=== PATIENT | male | born 1985 | race Caucasian/White ===

== ENCOUNTER 2019-03-27 12:51 | Emergency (ER) | payer BC, OTHER ==
--- NOTE | 2019-03-27 13:26 | EDM.PDOC ---
ED HPI GENERAL MEDICAL PROBLEM - General Chief Complaint: Genitourinary Problem Stated Complaint: groin pain Time Seen by Provider: 03/27/19 12:57 Source of Information: Reports: Patient History Limitations: Reports: No Limitations - History of Present Illness INITIAL COMMENTS - FREE TEXT/NARRATIVE: HISTORY AND PHYSICAL: Resents reporting that he woke around 5:30 this morning and after he was up for a little while he noticed that his left testicle was swollen and painful as well as tender to the touch. He also felt a little nauseated this morning but no vomiting. He denies dysuria, groin injury or fever. He is sexually active with his only. He had a remote left inguinal hernia repair. No history of undescended testicle. He states since his arrival here in the ER his pain, swelling and tenderness have significantly decreased. History of present illness: [] Review of systems: As per history of present illness and below otherwise all systems reviewed and negative. Past medical history: As per history of present illness and as reviewed below otherwise noncontributory. Surgical history: As per history of present illness and as reviewed below otherwise noncontributory. Social history: No reported history of drug or alcohol abuse. Family history: As per history of present illness and as reviewed below otherwise noncontributory. Physical exam: HEENT: Atraumatic, normocephalic, pupils reactive, negative for conjunctival pallor or scleral icterus, mucous membranes moist, throat clear, neck supple, nontender, trachea midline. Lungs: Clear to auscultation, breath sounds equal bilaterally, chest nontender. Heart: S1S2, regular, negative for clicks, rubs, or JVD. Abdomen: Soft, nondistended, nontender. Negative for masses or hepatosplenomegaly. Negative for costovertebral tenderness. Pelvis: Stable nontender. Genitourinary: Deferred. Rectal: Deferred. Extremities: Atraumatic, negative for cords or calf pain. Neurovascular unremarkable. Neuro: Awake, alert, oriented. Cranial nerves II through XII unremarkable. Cerebellum unremarkable. Motor and sensory unremarkable throughout. Exam nonfocal. Diagnostics: [] Therapeutics: [] Impression: [] Plan: [] Definitive disposition and diagnosis as appropriate pending reevaluation and review of above. left testicle Pain Score (Numeric/FACES): 2 - Related Data Allergies Allergy/AdvReac Type Severity Reaction Status Date / Time No Known Allergies Allergy Verified 03/27/19 13:01 Home Meds: Home Meds . [No Known Home Meds] 03/27/19 [History] Past Medical History - Past Health History Medical/Surgical History: Denies Medical/Surgical History - Infectious Disease History Infectious Disease History: Reports: Chicken Pox - Past Surgical History GI Surgical History: Reports: Hernia, Inguinal Social & Family History - Family History Family Medical History: Noncontributory - Tobacco Use Smoking Status *Q: Never Smoker Second Hand Smoke Exposure: No - Recreational Drug Use Recreational Drug Use: No ED ROS GENERAL - Review of Systems Review Of Systems: ROS reveals no pertinent complaints other than HPI. ED EXAM, GI/ABD - Physical Exam Exam: See Below Exam Limited By: No Limitations General Appearance: Alert, No Apparent Distress Ears: Normal External Exam Nose: Normal Inspection Throat/Mouth: Normal Inspection Head: Normocephalic Neck: Normal Inspection Respiratory/Chest: No Respiratory Distress, Lungs Clear, Normal Breath Sounds Cardiovascular: Normal Peripheral Pulses, Regular Rate, Rhythm, No Murmur GI/Abdominal Exam: Soft, Non-Tender, No Distention (Male) Exam: No Hernia, Normal Inspection, Circumcised, Cremasteric Reflex, Other (Left testicle smooth, non-tender to palpation, hanging in usual position. Cremasteric reflex intact bilateral. No inguinal hernia.). No: Hernia, Penile Lesions, Scrotal Swelling, Scrotum Tenderness (L), Scrotum Tenderness (R), Testicular Mass, Testicular Tenderness (L), Testicular Tenderness (R), Urethral Discharge Back Exam: Normal Inspection. No: CVA Tenderness (L), CVA Tenderness (R) Extremities: Normal Inspection Neurological: Alert, Oriented Psychiatric: Normal Affect, Normal Mood Skin Exam: Warm, Dry, Intact, Normal Color, No Rash Lymphatic: No Adenopathy Course - Vital Signs Last Recorded V/S: Last Vital Signs Temp 36.2 C 03/27/19 12:59 Pulse 92 03/27/19 12:59 Resp 16 03/27/19 12:59 BP 123/89 03/27/19 12:59 Pulse Ox 98 03/27/19 12:59 - Orders/Labs/Meds Labs: Laboratory Tests 03/27/19 Range/Units 13:15 Urine Color YELLOW Urine Appearance CLEAR Urine pH 7.0 (5.0-8.0) Ur Specific [place] <= 1.005 (1.001-1.035) Urine Protein NEGATIVE (NEGATIVE) mg/dL Urine Glucose (UA) NEGATIVE (NEGATIVE) mg/dL Urine Ketones NEGATIVE (NEGATIVE) mg/dL Urine Occult Blood NEGATIVE (NEGATIVE) Urine Nitrite NEGATIVE (NEGATIVE) Urine Bilirubin NEGATIVE (NEGATIVE) Urine Urobilinogen 0.2 (<2.0) EU/dL Ur Leukocyte Esterase NEGATIVE (NEGATIVE) - Re-Assessments/Exams Free Text/Narrative Re-Assessment/Exam: 03/27/19 14:17 The patient's symptoms are completely resolved in the emergency room. His exam was negative Departure - Departure Time of Disposition: 14:15 Disposition: Home, Self-Care 01 Condition: Good Clinical Impression: Testicular pain, left - Discharge Information Instructions: Scrotal Swelling Referrals: PCP,Unknown [Primary Care Provider] - Tr Triplett MD [Physician] - Mikayla Daley DO [Ordering Only Provider] - Forms: ED Department Discharge Additional Instructions: 1. Make an appointment in urology to discuss and review your recent symptoms. 2. If symptoms recur, return promptly to the emergency room [facility] - Urology [address] [place] [id number]
== END 2019-03-27 14:24 | disposition home or self-care (01) ==
LOC: MW.ED 12:51
DX: N50.812 Left testicular pain (principal)
CPT/HCPCS: 81003; 99284

== ENCOUNTER 2021-06-07 19:25 | Observation (INO) | payer BC ==
[2021-06-07] MEDS ORDERED: Sodium Chloride 0.9% 1,000 ML IV ONE ×2 (20:00→22:04)
[2021-06-07] MEDS ORDERED: Ketorolac 15 MG/ML SDV IVPUSH ONE (20:00)
[2021-06-07] MEDS ORDERED: Sodium Chloride 0.9% 10 ML Syringe FLUSH PRN (20:00)
[2021-06-07] MEDS ORDERED: Sodium Chloride 0.9% 2.5 ML Syringe FLUSH PRN (20:00)
[2021-06-07 20:29] LABS: BLOOD UREA NITROGEN,BUN 8 mg/dL (7.0-18.0); CARBON DIOXIDE,CO2 25.4 mmol/L (21.0-32.0); CHLORIDE,CL 88 mmol/L (98-107); GLUCOSE RANDOM 136 mg/dL (74-106); POTASSIUM,K 4.2 mmol/L (3.5-5.1); SODIUM,NA 125 mmol/L (136-148)
--- NOTE | 2021-06-07 22:26 | CT ---
Indication: Covered positive. Chest pain. Technique: Multiple contiguous axial images were obtained from the thoracic inlet through the upper abdomen after the intravenous administration of 100 milliliters Isovue 370. The exam is tailored for the evaluation of the pulmonary arteries. Please note that all CT scans at this facility use dose modulation, iterative reconstruction, and/or weight-based dosing when appropriate to reduce radiation dose to as low as reasonably achievable. Comparison: None Findings: No pulmonary embolism is identified. The aorta is normal in caliber. The heart is normal in size. No pericardial effusion is identified. The visualized portions of the liver, spleen, pancreas, adrenals, kidneys are normal. No intrahepatic biliary ductal dilatation is identified. The spleen is enlarged, measuring a minimum of 14 centimeters in size, incompletely evaluated. Bilateral patchy ground-glass opacities are identified, most consistent with COVID. No infiltrate or pneumothorax is identified. No pleural effusion is identified. Impression: Findings most consistent with COVID with bilateral patchy ground-glass opacities. No evidence of pulmonary embolism. Splenomegaly, incompletely evaluated on this study. Please note that all CT scans at this facility use dose modulation, iterative reconstruction, and/or weight-based dosing when appropriate to reduce radiation dose to as low as reasonably achievable. Dictated by Princess Davidson MD @ 06/07/2021 10:24:55 PM (Electronically Signed)
[2021-06-07 22:30] LABS: BLOOD UREA NITROGEN,BUN 9 mg/dL (7.0-18.0); CHLORIDE,CL 91 mmol/L (98-107); GLUCOSE RANDOM 110 mg/dL (74-106); POTASSIUM,K 3.9 mmol/L (3.5-5.1); SODIUM,NA 125 mmol/L (136-148)
--- NOTE | 2021-06-07 23:01 | EDM.PDOC ---
ED HPI GENERAL MEDICAL PROBLEM - General Chief Complaint: Chest Pain Stated Complaint: COVID POS, CHEST PAINS Time Seen by Provider: 06/07/21 19:43 - History of Present Illness INITIAL COMMENTS - FREE TEXT/NARRATIVE: HISTORY AND PHYSICAL: History of present illness: Is a healthy 35-year-old gentleman with no significant past medical history who presents ER today secondary to chest pain and shortness of breath. Patient reports that he cold the health department and they recommended he come to the ER for further evaluation of his symptoms as well as possible initiation of Regeneron therapy. Patient reports that he was diagnosed on May 30 with his initial symptoms starting on June 01. Patient reports that he had his test done 2 days prior to his symptoms beginning because of exposure to family members with Covid. Patient denies any recent vomiting or diarrhea. Patient has any dysuria, frequency, urgency. Patient reports he has had fevers with cough. Patient reports shortness of breath as well as chest discomfort that started in the last 1 to 2 days. Patient is not currently on any diuretics. Patient does not drink alcohol but reports that he occasionally uses a vape. Review of systems: As per history of present illness and below otherwise all systems reviewed and negative. Past medical history: As per history of present illness and as reviewed below otherwise noncontributory. Surgical history: As per history of present illness and as reviewed below otherwise noncontributory. Social history: No reported history of drug abuse. Family history: As per history of present illness and as reviewed below otherwise noncontributory. Physical exam: This patient was seen and evaluated during the 2019 SARS-CoV-2 novel coronavirus pandemic period. Community viral transmission is ongoing at time of this encounter and the emergency department is operating under pandemic response procedures. Constitutional: Patient is oriented to person, place, and time. Appears well- developed and well-nourished. No distress. HEENT: Moist mucous membranes Head: Normocephalic and atraumatic Eyes: Right eye exhibits no discharge. Left eye exhibits no discharge. No scleral icterus Neck: Normal range of motion. No tracheal deviation present. Cardiovascular: Normal rate and regular rhythm. Pulmonary: Effort normal, no respiratory distress. No wheezing rales or rhonchi Abdominal: No distention Musculoskeletal: Normal range of motion Neurologic: Alert and oriented to person, place and time. Skin: [place], warm and dry. Psychiatric: Normal mood and affect. Behavior is normal. Judgment and thought content normal. Nursing note and vital signs have been reviewed Diagnostics: Sodium level 125. This was repeated after 1 L of NSS and his sodium level did not change and still 125. EK06/07/2021. 7:40 PM As interpreted by ER physician: [place]: Nonspecific ST-T wave abnormalities Normal axis No evidence of ST elevation [place] Normal sinus rhythm heart rate of 100 CTA of the thorax reveals changes consistent with Covid pneumonia. D-dimer positive Therapeutics: NSS x1 L Assessment and plan: 35-year-old gentleman who presents ER today secondary to chest discomfort with shortness of breath after being diagnosed with Covid approximately 7 days ago. Patient's ER work-up reveals no evidence of PE. Patient's EKG and troponin are normal. Of concern is patient's hyponatremia with a sodium level of 125. Patient has been able to tolerate p.o. solids and liquids well. This appears to be most likely consistent with SIADH versus hyponatremia from coronavirus infection. Patient will be admitted for observation to determine trends of his sodium and to monitor for possible seizure activity. Definitive disposition and diagnosis as appropriate pending reevaluation and review of above. Chest Pain Score (Numeric/FACES): 5 - Related Data Allergies Allergy/AdvReac Type Severity Reaction Status Date / Time No Known Allergies Allergy Verified 06/07/21 19:40 Home Meds: Home Meds . [No Known Home Meds] 03/27/19 [History] Past Medical History - Past Health History Medical/Surgical History: Denies Medical/Surgical History - Infectious Disease History Infectious Disease History: Reports: Chicken Pox, Novel Coronavirus - Past Surgical History GI Surgical History: Reports: Hernia, Inguinal Social & Family History - Family History Family Medical History: No Pertinent Family History - Tobacco Use Tobacco Use Status *Q: Never Tobacco User - Caffeine Use Caffeine Use: Reports: Coffee - Recreational Drug Use Recreational Drug Use: No ED ROS GENERAL - Review of Systems Review Of Systems: See Below ED EXAM, GENERAL - Physical Exam Exam: See Below Course - Vital Signs Last Recorded V/S: Last Vital Signs Temp 97.7 F 06/07/21 22:54 Pulse 85 06/07/21 22:54 Resp 18 06/07/21 22:54 BP 99/62 06/07/21 22:54 Pulse Ox 95 06/07/21 22:54 - Orders/Labs/Meds Orders: Active Orders 24 hr Category Date Time Status Sodium Chloride 0.9% [Normal Saline] 1,000 ml Med 06/07/21 22:04 Active IV .Bolus Sodium Chloride 0.9% [Saline Flush] Med 06/07/21 20:00 Active 10 ml FLUSH ASDIRECTED PRN Sodium Chloride 0.9% [Saline Flush] Med 06/07/21 20:00 Active 2.5 ml FLUSH ASDIRECTED PRN Saline Lock Insert [OM.PC] Stat Oth 06/07/21 20:00 Ordered Medication Orders Sodium Chloride (Normal Saline) 1,000 mls @ 999 mls/hr IV .Bolus ONE Stop: 06/07/21 23:04 Sodium Chloride (Sodium Chloride 0.9% 10 Ml Syringe) 10 ml FLUSH ASDIRECTED PRN PRN Reason: Keep Vein Open Last Admin: 06/07/21 20:13 Dose: 10 ml Documented by: CALOS Sodium Chloride (Sodium Chloride 0.9% 2.5 Ml Syringe) 2.5 ml FLUSH ASDIRECTED PRN PRN Reason: Keep Vein Open Last Admin: 06/07/21 20:13 Dose: 2.5 ml Documented by: CALOS Labs: Laboratory Tests 06/07/21 06/07/21 06/07/21 Range/Units 19:50 19:50 19:50 WBC 3.64 L (4.0-11.0) K/uL RBC 5.25 (4.50-5.90) M/uL Hgb 14.9 (13.0-17.0) g/dL Hct 40.8 (38.0-50.0) % MCV 77.7 L (80.0-98.0) fL MCH 28.4 (27.0-32.0) pg MCHC 36.5 (31.0-37.0) g/dL RDW Std Deviation 36.2 (28.0-62.0) fl RDW Coeff of David 13 (11.0-15.0) % Plt Count 120 L (150-400) K/uL MPV 10.60 (7.40-12.00) fL Neut % (Auto) 68.7 (48.0-80.0) % Lymph % (Auto) 23.9 (16.0-40.0) % [place] % (Auto) 7.4 (0.0-15.0) % Eos % (Auto) 0.0 (0.0-7.0) % Baso % (Auto) 0.0 (0.0-1.5) % Neut # (Auto) 2.5 (1.4-5.7) K/uL Lymph # (Auto) 0.9 (0.6-2.4) K/uL [place] # (Auto) 0.3 (0.0-0.8) K/uL Eos # (Auto) 0.0 (0.0-0.7) K/uL Baso # (Auto) 0.0 (0.0-0.1) K/uL Nucleated RBC % 0.0 /100WBC Nucleated RBCs # 0 K/uL D-Dimer, Quantitative 1.53 H (0.0-0.50) mg/L FEU Sodium 125 L (136-148) mmol/L Potassium 4.2 (3.5-5.1) mmol/L Chloride 88 L (98-107) mmol/L Carbon Dioxide 25.4 (21.0-32.0) mmol/L BUN 8 (7.0-18.0) mg/dL Creatinine 1.0 (0.8-1.3) mg/dL Est Cr Clr Drug Dosing 104.43 mL/min Estimated GFR (MDRD) > 60.0 ml/min Glucose 136 H (74-106) mg/dL Calcium 8.1 L (8.5-10.1) mg/dL Total Bilirubin 0.6 (0.2-1.0) mg/dL AST 45 H (15-37) IU/L ALT 69 H (14-63) IU/L Alkaline Phosphatase 98 (46-116) U/L Troponin I < 0.050 (0.000-0.056) ng/mL Total Protein 7.8 (6.4-8.2) g/dL Albumin 3.7 (3.4-5.0) g/dL Globulin 4.1 H (2.6-4.0) g/dL Albumin/Globulin Ratio 0.9 (0.9-1.6) 06/07/21 Range/Units 22:10 WBC (4.0-11.0) K/uL RBC (4.50-5.90) M/uL Hgb (13.0-17.0) g/dL Hct (38.0-50.0) % MCV (80.0-98.0) fL MCH (27.0-32.0) pg MCHC (31.0-37.0) g/dL RDW Std Deviation (28.0-62.0) fl RDW Coeff of David (11.0-15.0) % Plt Count (150-400) K/uL MPV (7.40-12.00) fL Neut % (Auto) (48.0-80.0) % Lymph % (Auto) (16.0-40.0) % [place] % (Auto) (0.0-15.0) % Eos % (Auto) (0.0-7.0) % Baso % (Auto) (0.0-1.5) % Neut # (Auto) (1.4-5.7) K/uL Lymph # (Auto) (0.6-2.4) K/uL [place] # (Auto) (0.0-0.8) K/uL Eos # (Auto) (0.0-0.7) K/uL Baso # (Auto) (0.0-0.1) K/uL Nucleated RBC % /100WBC Nucleated RBCs # K/uL D-Dimer, Quantitative (0.0-0.50) mg/L FEU Sodium 125 L (136-148) mmol/L Potassium 3.9 (3.5-5.1) mmol/L Chloride 91 L (98-107) mmol/L Carbon Dioxide 24.0 (21.0-32.0) mmol/L BUN 9 (7.0-18.0) mg/dL Creatinine 0.9 (0.8-1.3) mg/dL Est Cr Clr Drug Dosing 116.03 mL/min Estimated GFR (MDRD) > 60.0 ml/min Glucose 110 H (74-106) mg/dL Calcium 7.0 L (8.5-10.1) mg/dL Total Bilirubin (0.2-1.0) mg/dL AST (15-37) IU/L ALT (14-63) IU/L Alkaline Phosphatase (46-116) U/L Troponin I (0.000-0.056) ng/mL Total Protein (6.4-8.2) g/dL Albumin (3.4-5.0) g/dL Globulin (2.6-4.0) g/dL Albumin/Globulin Ratio (0.9-1.6) Meds: Medications Generic Name Dose Route Start Last Admin Trade Name Kevenq PRN Reason Stop Dose Admin Sodium Chloride 1,000 mls @ 999 mls/hr 06/07/21 22:04 Normal Saline IV 06/07/21 23:04 .Bolus ONE Sodium Chloride 10 ml 06/07/21 20:00 06/07/21 20:13 Sodium Chloride 0.9% 10 Ml Syringe FLUSH 10 ml ASDIRECTED PRN Administration Keep Vein Open Sodium Chloride 2.5 ml 06/07/21 20:00 06/07/21 20:13 Sodium Chloride 0.9% 2.5 Ml Syringe FLUSH 2.5 ml ASDIRECTED PRN Administration Keep Vein Open Discontinued Medications Generic Name Dose Route Start Last Admin Trade Name Kevenq PRN Reason Stop Dose Admin Sodium Chloride 1,000 mls @ 999 mls/hr 06/07/21 20:00 06/07/21 20:12 Normal Saline IV 06/07/21 21:00 999 mls/hr .Bolus ONE Administration Ketorolac Tromethamine 15 mg 06/07/21 20:00 06/07/21 20:12 Ketorolac 15 Mg/Ml Sdv IVPUSH 06/07/21 20:01 15 mg ONETIME ONE Administration Departure - Departure Time of Disposition: 23:00 Disposition: Refer to Observation Condition: Good Clinical Impression: COVID-19 virus infection, Pneumonia due to COVID-19 virus, Hyponatremia - Discharge Information Referrals: Riley Almaguer [Primary Care Provider] - Sepsis Event Note (ED) - Evaluation Sepsis Screening Result: No Definite Risk - Focused Exam Vital Signs: Vital Signs Temp Pulse Resp BP Pulse Ox 06/07/21 22:54 97.7 F 85 18 99/62 95 06/07/21 21:18 87 112/67 94 L 06/07/21 19:40 98.2 F 100 18 125/75 94 L - My Orders Last 24 Hours: My Active Orders 06/07/21 20:00 Sodium Chloride 0.9% [Saline Flush] 10 ml FLUSH ASDIRECTED PRN Sodium Chloride 0.9% [Saline Flush] 2.5 ml FLUSH ASDIRECTED PRN Saline Lock Insert [OM.PC] Stat 06/07/21 22:04 Sodium Chloride 0.9% [Normal Saline] 1,000 ml IV .Bolus - Assessment/Plan Last 24 Hours: My Active Orders 06/07/21 20:00 Sodium Chloride 0.9% [Saline Flush] 10 ml FLUSH ASDIRECTED PRN Sodium Chloride 0.9% [Saline Flush] 2.5 ml FLUSH ASDIRECTED PRN Saline Lock Insert [OM.PC] Stat 06/07/21 22:04 Sodium Chloride 0.9% [Normal Saline] 1,000 ml IV .Bolus
[2021-06-07] MEDS ORDERED: Iopamidol 755 MG/ML 500 ML Multipack Bottle IVPUSH STA (23:06)
--- NOTE | 2021-06-07 23:15 | PCM.HP.2 ---
H&P History of Present Illness - General Date of Service: 06/09/21 Admit Problem/Dx: Admission Diagnosis/Problem Admission Diagnosis/Problem Pneumonia - History of Present Illness Initial Comments - Free Text/Narative: 35 yo male who presented with one week history of nausea, poor apatite, and diarrhea. He also reported a cough with shortness of breath. He tested positive for COVID on the May 30 and started to have symptoms on the . In the ER he was found to be not hypoxic. He did have a low sodium fo 125. CT scan of chest reported bilateral ground glass opacifications. Chest Pain Score (Numeric/FACES): 5 - Related Data Allergies/Adverse Reactions: Allergies Allergy/AdvReac Type Severity Reaction Status Date / Time No Known Allergies Allergy Verified 06/07/21 23:43 Home Medications: Home Meds D-Methorphan/PE/Acetaminophen [Tylenol Cold Multi-Symp Caplet] 2 tab PO Q4H PRN 06/07/21 [History] Ibuprofen 600 mg PO Q8H PRN 06/07/21 [History] Past Medical History - Past Health History Medical/Surgical History: Denies Medical/Surgical History - Infectious Disease History Infectious Disease History: Reports: Chicken Pox, Novel Coronavirus - Past Surgical History GI Surgical History: Reports: Hernia, Inguinal Social & Family History - Family History Family Medical History: No Pertinent Family History - Tobacco Use Tobacco Use Status *Q: Never Tobacco User - Caffeine Use Caffeine Use: Reports: Coffee - Recreational Drug Use Recreational Drug Use: No H&P Review of Systems - Review of Systems: Review Of Systems: Comprehensive ROS is negative, except as noted in HPI. Exam - Exam Exam: See Below - Vital Signs Vital Signs: Last Vital Signs Temp 36.5 C 06/07/21 22:54 Pulse 85 06/07/21 22:54 Resp 18 06/07/21 22:54 BP 99/62 06/07/21 22:54 Pulse Ox 95 06/07/21 22:54 Weight: 106.594 kg - Exam General: Alert, Oriented Lungs: Clear to Auscultation, Normal Respiratory Effort Cardiovascular: Regular Rate, Regular Rhythm GI/Abdominal Exam: Normal Bowel Sounds, Soft Extremities: Non-Tender, No Pedal Edema Skin: Warm, Dry, Intact Neurological: No: Focal Deficit - Patient Data Lab Results Last 24 hrs: Laboratory Results - last 24 hr 06/07/21 06/07/21 06/07/21 Range/Units 19:50 19:50 19:50 WBC 3.64 L (4.0-11.0) K/uL RBC 5.25 (4.50-5.90) M/uL Hgb 14.9 (13.0-17.0) g/dL Hct 40.8 (38.0-50.0) % MCV 77.7 L (80.0-98.0) fL MCH 28.4 (27.0-32.0) pg MCHC 36.5 (31.0-37.0) g/dL RDW Std Deviation 36.2 (28.0-62.0) fl RDW Coeff of David 13 (11.0-15.0) % Plt Count 120 L (150-400) K/uL MPV 10.60 (7.40-12.00) fL Neut % (Auto) 68.7 (48.0-80.0) % Lymph % (Auto) 23.9 (16.0-40.0) % [place] % (Auto) 7.4 (0.0-15.0) % Eos % (Auto) 0.0 (0.0-7.0) % Baso % (Auto) 0.0 (0.0-1.5) % Neut # (Auto) 2.5 (1.4-5.7) K/uL Lymph # (Auto) 0.9 (0.6-2.4) K/uL [place] # (Auto) 0.3 (0.0-0.8) K/uL Eos # (Auto) 0.0 (0.0-0.7) K/uL Baso # (Auto) 0.0 (0.0-0.1) K/uL Nucleated RBC % 0.0 /100WBC Nucleated RBCs # 0 K/uL D-Dimer, Quantitative 1.53 H (0.0-0.50) mg/L FEU Sodium 125 L (136-148) mmol/L Potassium 4.2 (3.5-5.1) mmol/L Chloride 88 L (98-107) mmol/L Carbon Dioxide 25.4 (21.0-32.0) mmol/L BUN 8 (7.0-18.0) mg/dL Creatinine 1.0 (0.8-1.3) mg/dL Est Cr Clr Drug Dosing 104.43 mL/min Estimated GFR (MDRD) > 60.0 ml/min Glucose 136 H (74-106) mg/dL Calcium 8.1 L (8.5-10.1) mg/dL Total Bilirubin 0.6 (0.2-1.0) mg/dL AST 45 H (15-37) IU/L ALT 69 H (14-63) IU/L Alkaline Phosphatase 98 (46-116) U/L Troponin I < 0.050 (0.000-0.056) ng/mL Total Protein 7.8 (6.4-8.2) g/dL Albumin 3.7 (3.4-5.0) g/dL Globulin 4.1 H (2.6-4.0) g/dL Albumin/Globulin Ratio 0.9 (0.9-1.6) 06/07/21 Range/Units 22:10 WBC (4.0-11.0) K/uL RBC (4.50-5.90) M/uL Hgb (13.0-17.0) g/dL Hct (38.0-50.0) % MCV (80.0-98.0) fL MCH (27.0-32.0) pg MCHC (31.0-37.0) g/dL RDW Std Deviation (28.0-62.0) fl RDW Coeff of David (11.0-15.0) % Plt Count (150-400) K/uL MPV (7.40-12.00) fL Neut % (Auto) (48.0-80.0) % Lymph % (Auto) (16.0-40.0) % [place] % (Auto) (0.0-15.0) % Eos % (Auto) (0.0-7.0) % Baso % (Auto) (0.0-1.5) % Neut # (Auto) (1.4-5.7) K/uL Lymph # (Auto) (0.6-2.4) K/uL [place] # (Auto) (0.0-0.8) K/uL Eos # (Auto) (0.0-0.7) K/uL Baso # (Auto) (0.0-0.1) K/uL Nucleated RBC % /100WBC Nucleated RBCs # K/uL D-Dimer, Quantitative (0.0-0.50) mg/L FEU Sodium 125 L (136-148) mmol/L Potassium 3.9 (3.5-5.1) mmol/L Chloride 91 L (98-107) mmol/L Carbon Dioxide 24.0 (21.0-32.0) mmol/L BUN 9 (7.0-18.0) mg/dL Creatinine 0.9 (0.8-1.3) mg/dL Est Cr Clr Drug Dosing 116.03 mL/min Estimated GFR (MDRD) > 60.0 ml/min Glucose 110 H (74-106) mg/dL Calcium 7.0 L (8.5-10.1) mg/dL Total Bilirubin (0.2-1.0) mg/dL AST (15-37) IU/L ALT (14-63) IU/L Alkaline Phosphatase (46-116) U/L Troponin I (0.000-0.056) ng/mL Total Protein (6.4-8.2) g/dL Albumin (3.4-5.0) g/dL Globulin (2.6-4.0) g/dL Albumin/Globulin Ratio (0.9-1.6) Result Diagrams: 06/09/21 06:35 06/09/21 06:35 Sepsis Event Note - Evaluation Sepsis Screening Result: No Definite Risk - Focused Exam Vital Signs: Vital Signs Temp Pulse Resp BP Pulse Ox 06/07/21 22:54 36.5 C 85 18 99/62 95 06/07/21 21:18 87 112/67 94 L 06/07/21 19:40 36.8 C 100 18 125/75 94 L Problem List Initiated/Reviewed/Updated: Yes Orders Last 24hrs: Active Orders 24 hr Category Date Time Status Patient Status [ADT] Routine ADT 06/07/21 23:01 Active Sodium Chloride 0.9% [Saline Flush] Med 06/07/21 20:00 Active 10 ml FLUSH ASDIRECTED PRN Sodium Chloride 0.9% [Saline Flush] Med 06/07/21 20:00 Active 2.5 ml FLUSH ASDIRECTED PRN Saline Lock Insert [OM.PC] Stat Oth 06/07/21 20:00 Ordered Medication Orders Sodium Chloride (Sodium Chloride 0.9% 10 Ml Syringe) 10 ml FLUSH ASDIRECTED PRN PRN Reason: Keep Vein Open Last Admin: 06/07/21 20:13 Dose: 10 ml Documented by: CALOS Sodium Chloride (Sodium Chloride 0.9% 2.5 Ml Syringe) 2.5 ml FLUSH ASDIRECTED PRN PRN Reason: Keep Vein Open Last Admin: 06/07/21 20:13 Dose: 2.5 ml Documented by: CALOS Assessment/Plan Comment:: 35 yo male admitted for COVID-19 with complications of dehydration and hyponatremia. Patient has received IV fluids in the ED and sodium remains 125. We will monitor overnight and continue to encourage oral intake.
[2021-06-08 06:30] LABS: BLOOD UREA NITROGEN,BUN 10 mg/dL (7.0-18.0); CARBON DIOXIDE,CO2 29.4 mmol/L (21.0-32.0); CHLORIDE,CL 95 mmol/L (98-107); GLUCOSE RANDOM 105 mg/dL (74-106); POTASSIUM,K 4.6 mmol/L (3.5-5.1); SODIUM,NA 131 mmol/L (136-148)
[2021-06-08] MEDS ORDERED: Acetaminophen 325 MG/10.15 ML ML PO PRN (07:10)
[2021-06-08] MEDS: Acetaminophen 325 MG Tab PO PRN ×3 (07:54→20:24)
--- NOTE | 2021-06-08 14:12 | PCM.PN ---
- General Info Date of Service: 06/08/21 Subjective Update: The patient is a 35-year-old male on day 1 of service who has no significant past medical history and takes no medications. He was diagnosed with COVID-19 on May 30 from family members who were diagnosed with the infection. Upon interview today he has no shortness of breath, no chest pain, is eating and drinking without issues, is voiding, tolerating solids and liquids, but does complain of diarrhea and occasional fevers. He was given Tyle nol which has made him feel better but nothing has worked for his diarrhea as of yet. He has no issues with oxygenation and currently is 94% on room air. He was found to be hyponatremic upon labs in the ER, and was given 2 boluses of normal saline which increased his sodium levels from 125 to 131. His blood work also revealed an increased D-dimer 1.53, as a result a CT angiogram of the chest was done which revealed no pulmonary embolism, but did show ground glass opacities bilaterally. He also had a EKG done which showed sinus rhythm. He has no other complaints at this time. - Review of Systems General: Reports: Fever, Fatigue. Denies: Chills HEENT: Denies: Sore Throat Pulmonary: Denies: Shortness of Breath, Cough Cardiovascular: Denies: Chest Pain, Palpitations, Dyspnea on Exertion Gastrointestinal: Reports: Diarrhea. Denies: Abdominal Pain, Constipation Genitourinary: Denies: Dysuria - Patient Data Vitals - Most Recent: Last Vital Signs Temp 99.8 F 06/08/21 07:54 Pulse 90 06/08/21 07:49 Resp 18 06/08/21 07:49 BP 105/62 06/08/21 07:49 Pulse Ox 94 L 06/08/21 07:49 Weight - Most Recent: 231 lb 6.4 oz I&O - Last 24 Hours: Intake & Output 06/07/21 06/08/21 06/08/21 22:59 06:59 14:59 Intake Total 120 Output Total 900 Balance -780 Lab Results Last 24 Hours: Laboratory Results - last 24 hr 06/07/21 06/07/21 06/07/21 Range/Units 19:50 19:50 19:50 WBC 3.64 L (4.0-11.0) K/uL RBC 5.25 (4.50-5.90) M/uL Hgb 14.9 (13.0-17.0) g/dL Hct 40.8 (38.0-50.0) % MCV 77.7 L (80.0-98.0) fL MCH 28.4 (27.0-32.0) pg MCHC 36.5 (31.0-37.0) g/dL RDW Std Deviation 36.2 (28.0-62.0) fl RDW Coeff of David 13 (11.0-15.0) % Plt Count 120 L (150-400) K/uL MPV 10.60 (7.40-12.00) fL Neut % (Auto) 68.7 (48.0-80.0) % Lymph % (Auto) 23.9 (16.0-40.0) % [place] % (Auto) 7.4 (0.0-15.0) % Eos % (Auto) 0.0 (0.0-7.0) % Baso % (Auto) 0.0 (0.0-1.5) % Neut # (Auto) 2.5 (1.4-5.7) K/uL Lymph # (Auto) 0.9 (0.6-2.4) K/uL [place] # (Auto) 0.3 (0.0-0.8) K/uL Eos # (Auto) 0.0 (0.0-0.7) K/uL Baso # (Auto) 0.0 (0.0-0.1) K/uL Nucleated RBC % 0.0 /100WBC Nucleated RBCs # 0 K/uL D-Dimer, Quantitative 1.53 H (0.0-0.50) mg/L FEU Sodium 125 L (136-148) mmol/L Potassium 4.2 (3.5-5.1) mmol/L Chloride 88 L (98-107) mmol/L Carbon Dioxide 25.4 (21.0-32.0) mmol/L BUN 8 (7.0-18.0) mg/dL Creatinine 1.0 (0.8-1.3) mg/dL Est Cr Clr Drug Dosing 104.43 mL/min Estimated GFR (MDRD) > 60.0 ml/min Glucose 136 H (74-106) mg/dL Calcium 8.1 L (8.5-10.1) mg/dL Total Bilirubin 0.6 (0.2-1.0) mg/dL AST 45 H (15-37) IU/L ALT 69 H (14-63) IU/L Alkaline Phosphatase 98 (46-116) U/L Troponin I < 0.050 (0.000-0.056) ng/mL Total Protein 7.8 (6.4-8.2) g/dL Albumin 3.7 (3.4-5.0) g/dL Globulin 4.1 H (2.6-4.0) g/dL Albumin/Globulin Ratio 0.9 (0.9-1.6) Urine Color Urine Appearance Urine pH (5.0-8.0) Ur Specific [place] (1.001-1.035) Urine Protein (NEGATIVE) mg/dL Urine Glucose (UA) (NEGATIVE) mg/dL Urine Ketones (NEGATIVE) mg/dL Urine Occult Blood (NEGATIVE) Urine Nitrite (NEGATIVE) Urine Bilirubin (NEGATIVE) Urine Urobilinogen (<2.0) EU/dL Ur Leukocyte Esterase (NEGATIVE) 06/07/21 06/08/21 06/08/21 Range/Units 22:10 05:25 09:25 WBC (4.0-11.0) K/uL RBC (4.50-5.90) M/uL Hgb (13.0-17.0) g/dL Hct (38.0-50.0) % MCV (80.0-98.0) fL MCH (27.0-32.0) pg MCHC (31.0-37.0) g/dL RDW Std Deviation (28.0-62.0) fl RDW Coeff of David (11.0-15.0) % Plt Count (150-400) K/uL MPV (7.40-12.00) fL Neut % (Auto) (48.0-80.0) % Lymph % (Auto) (16.0-40.0) % [place] % (Auto) (0.0-15.0) % Eos % (Auto) (0.0-7.0) % Baso % (Auto) (0.0-1.5) % Neut # (Auto) (1.4-5.7) K/uL Lymph # (Auto) (0.6-2.4) K/uL [place] # (Auto) (0.0-0.8) K/uL Eos # (Auto) (0.0-0.7) K/uL Baso # (Auto) (0.0-0.1) K/uL Nucleated RBC % /100WBC Nucleated RBCs # K/uL D-Dimer, Quantitative (0.0-0.50) mg/L FEU Sodium 125 L 131 L (136-148) mmol/L Potassium 3.9 4.6 (3.5-5.1) mmol/L Chloride 91 L 95 L (98-107) mmol/L Carbon Dioxide 24.0 29.4 (21.0-32.0) mmol/L BUN 9 10 (7.0-18.0) mg/dL Creatinine 0.9 1.0 (0.8-1.3) mg/dL Est Cr Clr Drug Dosing 116.03 101.14 mL/min Estimated GFR (MDRD) > 60.0 > 60.0 ml/min Glucose 110 H 105 (74-106) mg/dL Calcium 7.0 L 8.0 L (8.5-10.1) mg/dL Total Bilirubin (0.2-1.0) mg/dL AST (15-37) IU/L ALT (14-63) IU/L Alkaline Phosphatase (46-116) U/L Troponin I (0.000-0.056) ng/mL Total Protein (6.4-8.2) g/dL Albumin (3.4-5.0) g/dL Globulin (2.6-4.0) g/dL Albumin/Globulin Ratio (0.9-1.6) Urine Color YELLOW Urine Appearance CLEAR Urine pH 7.0 (5.0-8.0) Ur Specific [place] 1.010 (1.001-1.035) Urine Protein NEGATIVE (NEGATIVE) mg/dL Urine Glucose (UA) NEGATIVE (NEGATIVE) mg/dL Urine Ketones TRACE H (NEGATIVE) mg/dL Urine Occult Blood NEGATIVE (NEGATIVE) Urine Nitrite NEGATIVE (NEGATIVE) Urine Bilirubin NEGATIVE (NEGATIVE) Urine Urobilinogen 0.2 (<2.0) EU/dL Ur Leukocyte Esterase NEGATIVE (NEGATIVE) Med Orders - Current: Current Medications Acetaminophen (Acetaminophen 325 Mg Tab) 650 mg PO Q6H PRN PRN Reason: Fever Last Admin: 06/08/21 07:54 Dose: 650 mg Documented by: Sodium Chloride (Sodium Chloride 0.9% 10 Ml Syringe) 10 ml FLUSH ASDIRECTED PRN PRN Reason: Keep Vein Open Last Admin: 06/07/21 20:13 Dose: 10 ml Documented by: Sodium Chloride (Sodium Chloride 0.9% 2.5 Ml Syringe) 2.5 ml FLUSH ASDIRECTED PRN PRN Reason: Keep Vein Open Last Admin: 06/07/21 20:13 Dose: 2.5 ml Documented by: Discontinued Medications Sodium Chloride (Normal Saline) 1,000 mls @ 999 mls/hr IV .Bolus ONE Stop: 06/07/21 21:00 Last Admin: 06/07/21 20:12 Dose: 999 mls/hr Documented by: Sodium Chloride (Normal Saline) 1,000 mls @ 999 mls/hr IV .Bolus ONE Stop: 06/07/21 23:04 Last Admin: 06/07/21 22:56 Dose: Not Given Documented by: Influenza Virus Vaccine (Pharmacy To Dose - Influenza Vaccine) 1 each IM ONETIME ONE Stop: 06/08/21 10:01 Influenza Virus Vaccine (Flu Vacc Pi9436-84(6mos Up)/Pf 60 Mcg/0.5 Ml Syringe) 60 mcg IM .ONCE ONE Stop: 06/08/21 10:01 Iopamidol (Iopamidol 755 Mg/Ml 500 Ml Multipack Bottle) 100 ml IVPUSH ONETIME STA Stop: 06/07/21 23:07 Last Admin: 06/07/21 23:07 Dose: 100 ml Documented by: Ketorolac Tromethamine (Ketorolac 15 Mg/Ml Sdv) 15 mg IVPUSH ONETIME ONE Stop: 06/07/21 20:01 Last Admin: 06/07/21 20:12 Dose: 15 mg Documented by: - Exam General: Alert, Oriented, Cooperative HEENT: Other (Dry mucous membranes) Neck: No Thyromegaly Lungs: Clear to Auscultation, Normal Respiratory Effort Cardiovascular: Regular Rate, Regular Rhythm, No Murmurs GI/Abdominal Exam: Normal Bowel Sounds, Soft, Non-Tender - Patient Data Lab Results Last 24 hrs: Laboratory Results - last 24 hr 06/07/21 06/07/21 06/07/21 Range/Units 19:50 19:50 19:50 WBC 3.64 L (4.0-11.0) K/uL RBC 5.25 (4.50-5.90) M/uL Hgb 14.9 (13.0-17.0) g/dL Hct 40.8 (38.0-50.0) % MCV 77.7 L (80.0-98.0) fL MCH 28.4 (27.0-32.0) pg MCHC 36.5 (31.0-37.0) g/dL RDW Std Deviation 36.2 (28.0-62.0) fl RDW Coeff of David 13 (11.0-15.0) % Plt Count 120 L (150-400) K/uL MPV 10.60 (7.40-12.00) fL Neut % (Auto) 68.7 (48.0-80.0) % Lymph % (Auto) 23.9 (16.0-40.0) % [place] % (Auto) 7.4 (0.0-15.0) % Eos % (Auto) 0.0 (0.0-7.0) % Baso % (Auto) 0.0 (0.0-1.5) % Neut # (Auto) 2.5 (1.4-5.7) K/uL Lymph # (Auto) 0.9 (0.6-2.4) K/uL [place] # (Auto) 0.3 (0.0-0.8) K/uL Eos # (Auto) 0.0 (0.0-0.7) K/uL Baso # (Auto) 0.0 (0.0-0.1) K/uL Nucleated RBC % 0.0 /100WBC Nucleated RBCs # 0 K/uL D-Dimer, Quantitative 1.53 H (0.0-0.50) mg/L FEU Sodium 125 L (136-148) mmol/L Potassium 4.2 (3.5-5.1) mmol/L Chloride 88 L (98-107) mmol/L Carbon Dioxide 25.4 (21.0-32.0) mmol/L BUN 8 (7.0-18.0) mg/dL Creatinine 1.0 (0.8-1.3) mg/dL Est Cr Clr Drug Dosing 104.43 mL/min Estimated GFR (MDRD) > 60.0 ml/min Glucose 136 H (74-106) mg/dL Calcium 8.1 L (8.5-10.1) mg/dL Total Bilirubin 0.6 (0.2-1.0) mg/dL AST 45 H (15-37) IU/L ALT 69 H (14-63) IU/L Alkaline Phosphatase 98 (46-116) U/L Troponin I < 0.050 (0.000-0.056) ng/mL Total Protein 7.8 (6.4-8.2) g/dL Albumin 3.7 (3.4-5.0) g/dL Globulin 4.1 H (2.6-4.0) g/dL Albumin/Globulin Ratio 0.9 (0.9-1.6) Urine Color Urine Appearance Urine pH (5.0-8.0) Ur Specific [place] (1.001-1.035) Urine Protein (NEGATIVE) mg/dL Urine Glucose (UA) (NEGATIVE) mg/dL Urine Ketones (NEGATIVE) mg/dL Urine Occult Blood (NEGATIVE) Urine Nitrite (NEGATIVE) Urine Bilirubin (NEGATIVE) Urine Urobilinogen (<2.0) EU/dL Ur Leukocyte Esterase (NEGATIVE) 06/07/21 06/08/21 06/08/21 Range/Units 22:10 05:25 09:25 WBC (4.0-11.0) K/uL RBC (4.50-5.90) M/uL Hgb (13.0-17.0) g/dL Hct (38.0-50.0) % MCV (80.0-98.0) fL MCH (27.0-32.0) pg MCHC (31.0-37.0) g/dL RDW Std Deviation (28.0-62.0) fl RDW Coeff of David (11.0-15.0) % Plt Count (150-400) K/uL MPV (7.40-12.00) fL Neut % (Auto) (48.0-80.0) % Lymph % (Auto) (16.0-40.0) % [place] % (Auto) (0.0-15.0) % Eos % (Auto) (0.0-7.0) % Baso % (Auto) (0.0-1.5) % Neut # (Auto) (1.4-5.7) K/uL Lymph # (Auto) (0.6-2.4) K/uL [place] # (Auto) (0.0-0.8) K/uL Eos # (Auto) (0.0-0.7) K/uL Baso # (Auto) (0.0-0.1) K/uL Nucleated RBC % /100WBC Nucleated RBCs # K/uL D-Dimer, Quantitative (0.0-0.50) mg/L FEU Sodium 125 L 131 L (136-148) mmol/L Potassium 3.9 4.6 (3.5-5.1) mmol/L Chloride 91 L 95 L (98-107) mmol/L Carbon Dioxide 24.0 29.4 (21.0-32.0) mmol/L BUN 9 10 (7.0-18.0) mg/dL Creatinine 0.9 1.0 (0.8-1.3) mg/dL Est Cr Clr Drug Dosing 116.03 101.14 mL/min Estimated GFR (MDRD) > 60.0 > 60.0 ml/min Glucose 110 H 105 (74-106) mg/dL Calcium 7.0 L 8.0 L (8.5-10.1) mg/dL Total Bilirubin (0.2-1.0) mg/dL AST (15-37) IU/L ALT (14-63) IU/L Alkaline Phosphatase (46-116) U/L Troponin I (0.000-0.056) ng/mL Total Protein (6.4-8.2) g/dL Albumin (3.4-5.0) g/dL Globulin (2.6-4.0) g/dL Albumin/Globulin Ratio (0.9-1.6) Urine Color YELLOW Urine Appearance CLEAR Urine pH 7.0 (5.0-8.0) Ur Specific [place] 1.010 (1.001-1.035) Urine Protein NEGATIVE (NEGATIVE) mg/dL Urine Glucose (UA) NEGATIVE (NEGATIVE) mg/dL Urine Ketones TRACE H (NEGATIVE) mg/dL Urine Occult Blood NEGATIVE (NEGATIVE) Urine Nitrite NEGATIVE (NEGATIVE) Urine Bilirubin NEGATIVE (NEGATIVE) Urine Urobilinogen 0.2 (<2.0) EU/dL Ur Leukocyte Esterase NEGATIVE (NEGATIVE) Result Diagrams: 06/07/21 19:50 06/08/21 05:25 Sepsis Event Note - Evaluation Sepsis Screening Result: No Definite Risk - Focused Exam Vital Signs: Vital Signs Temp Temp Temp Pulse Resp BP Pulse Ox 06/08/21 07:54 99.8 F 06/08/21 07:49 99.8 F 90 18 105/62 94 L 06/08/21 06:55 101.7 F H 86 20 95/51 L 94 L 06/08/21 05:06 99.5 F 06/08/21 04:00 99.3 F 88 20 104/58 L 93 L - Problem List & Annotations (1) COVID-19 virus infection SNOMED Code(s): 965102905 Code(s): U07.1 - COVID-19 Status: Acute Current Visit: Yes (2) Hyponatremia SNOMED Code(s): 88445674 Code(s): E87.1 - HYPO-OSMOLALITY AND HYPONATREMIA Status: Acute Current Visit: Yes - Problem List Review Problem List Initiated/Reviewed/Updated: Yes - My Orders Last 24 Hours: My Active Orders 06/08/21 09:25 OSMOLALITY - SERUM [REF] Routine OSMOLALITY - URINE Routine - Plan Plan:: 1. Hyponatremia -The patient's decreased sodium levels can be a result of his COVID-19 infection, dehydration, or SIADH, the patient has received 2 boluses of normal saline in order to replete his levels. Moving forward the patient has been counseled on increasing his oral intake. The patient was complaining of dehydration prior to admission and this may be a cause of why his sodium levels are decreased. We have also ordered a urine osmolarity and serum osmolarity and are awaiting results. We will continue to keep the patient in hospital for another 24 hours to observe for any improvements. A CMP has been ordered for the a.m. and can tell us if his levels have improved. 2. COVID-19 infection -The patient though tested positive for COVID-19, is saturating 94% on room air, does not have any shortness of breath, and does not have any cough. As a result we will continue to monitor his vital signs but will not treat with any medication at this time. .
[2021-06-09] MEDS: Acetaminophen 325 MG Tab PO PRN ×4 (02:49→20:15)
[2021-06-09 08:05] LABS: BLOOD UREA NITROGEN,BUN 10 mg/dL (7.0-18.0); CARBON DIOXIDE,CO2 28.3 mmol/L (21.0-32.0); CHLORIDE,CL 95 mmol/L (98-107); GLUCOSE RANDOM 109 mg/dL (74-106); POTASSIUM,K 4.9 mmol/L (3.5-5.1); SODIUM,NA 132 mmol/L (136-148)
[2021-06-09] MEDS ORDERED: Loperamide 2 MG Cap PO ONE (08:12)
[2021-06-09] MEDS: Pantoprazole 40 MG Tab.CR PO SCH (11:41)
[2021-06-09] MEDS: Enoxaparin 40 MG/0.4 ML Syringe SUBCUT SCH (11:42)
--- NOTE | 2021-06-09 12:05 | PCM.PN ---
- General Info Date of Service: 06/09/21 Subjective Update: The patient is a 35-year-old male, on day 2 of service, with no significant past medical history, who was admitted for hyponatremia most likely due to dehydration versus SIADH versus COVID-19 infection. He is also here in the hospital due to COVID-19 but does not require any oxygen, and is currently saturating 95% on room air. On interview today, the patient still complains of nausea but has not had any vomiting. He is also complaining of fever and received Tylenol 40 minutes prior to interview. He is also complaining of diarrhea which is nonbloody which tends to occur every 2-3 hours. He did receive Imodium which has slightly improved his bowel movements. He does complain of cough with blood tinged sputum, most likely secondary to infl ammation. He is eating and drinking without any issues. The patient did voice concern today about any novel treatments with antibodies or remdesivir for his COVID-19 infection. It was explained to him that he is not a candidate for this type of management. He has no other complaints at this time. - Review of Systems General: Reports: Fatigue. Denies: Fever, Weakness, Chills, Night Sweats HEENT: Denies: Sore Throat Pulmonary: Reports: Cough, Sputum. Denies: Shortness of Breath Cardiovascular: Denies: Chest Pain, Palpitations, Dyspnea on Exertion Gastrointestinal: Reports: Abdominal Pain, Diarrhea. Denies: Constipation Genitourinary: Denies: Dysuria - Patient Data Vitals - Most Recent: Last Vital Signs Temp 99 F 06/09/21 11:40 Pulse 81 06/09/21 11:40 Resp 16 06/09/21 11:40 BP 118/73 06/09/21 11:40 Pulse Ox 96 06/09/21 11:40 Weight - Most Recent: 231 lb 6.4 oz I&O - Last 24 Hours: Intake & Output 06/08/21 06/09/21 06/09/21 22:59 06:59 14:59 Intake Total 1600 1000 Output Total 350 Balance 1250 1000 Lab Results Last 24 Hours: Laboratory Results - last 24 hr 06/08/21 06/08/21 06/09/21 Range/Units 09:25 09:25 06:35 WBC 5.02 (4.0-11.0) K/uL RBC 5.23 (4.50-5.90) M/uL Hgb 14.7 (13.0-17.0) g/dL Hct 41.9 (38.0-50.0) % MCV 80.1 (80.0-98.0) fL MCH 28.1 (27.0-32.0) pg MCHC 35.1 (31.0-37.0) g/dL RDW Std Deviation 39.2 (28.0-62.0) fl RDW Coeff of David 13 (11.0-15.0) % Plt Count 142 L (150-400) K/uL MPV 11.00 (7.40-12.00) fL Neut % (Auto) 61.3 (48.0-80.0) % Lymph % (Auto) 31.7 (16.0-40.0) % [place] % (Auto) 6.8 (0.0-15.0) % Eos % (Auto) 0.0 (0.0-7.0) % Baso % (Auto) 0.2 (0.0-1.5) % Neut # (Auto) 3.1 (1.4-5.7) K/uL Lymph # (Auto) 1.6 (0.6-2.4) K/uL [place] # (Auto) 0.3 (0.0-0.8) K/uL Eos # (Auto) 0.0 (0.0-0.7) K/uL Baso # (Auto) 0.0 (0.0-0.1) K/uL Nucleated RBC % 0.0 /100WBC Nucleated RBCs # 0 K/uL Sodium (136-148) mmol/L Potassium (3.5-5.1) mmol/L Chloride (98-107) mmol/L Carbon Dioxide (21.0-32.0) mmol/L BUN (7.0-18.0) mg/dL Creatinine (0.8-1.3) mg/dL Est Cr Clr Drug Dosing mL/min Estimated GFR (MDRD) ml/min Glucose (74-106) mg/dL Serum Osmolality 264 L (275-295) mosm/kg Calcium (8.5-10.1) mg/dL Total Bilirubin (0.2-1.0) mg/dL AST (15-37) IU/L ALT (14-63) IU/L Alkaline Phosphatase (46-116) U/L Total Protein (6.4-8.2) g/dL Albumin (3.4-5.0) g/dL Globulin (2.6-4.0) g/dL Albumin/Globulin Ratio (0.9-1.6) Urine Osmolality 436 (300-900) mosm/kg 06/09/21 Range/Units 06:35 WBC (4.0-11.0) K/uL RBC (4.50-5.90) M/uL Hgb (13.0-17.0) g/dL Hct (38.0-50.0) % MCV (80.0-98.0) fL MCH (27.0-32.0) pg MCHC (31.0-37.0) g/dL RDW Std Deviation (28.0-62.0) fl RDW Coeff of David (11.0-15.0) % Plt Count (150-400) K/uL MPV (7.40-12.00) fL Neut % (Auto) (48.0-80.0) % Lymph % (Auto) (16.0-40.0) % [place] % (Auto) (0.0-15.0) % Eos % (Auto) (0.0-7.0) % Baso % (Auto) (0.0-1.5) % Neut # (Auto) (1.4-5.7) K/uL Lymph # (Auto) (0.6-2.4) K/uL [place] # (Auto) (0.0-0.8) K/uL Eos # (Auto) (0.0-0.7) K/uL Baso # (Auto) (0.0-0.1) K/uL Nucleated RBC % /100WBC Nucleated RBCs # K/uL Sodium 132 L (136-148) mmol/L Potassium 4.9 (3.5-5.1) mmol/L Chloride 95 L (98-107) mmol/L Carbon Dioxide 28.3 (21.0-32.0) mmol/L BUN 10 (7.0-18.0) mg/dL Creatinine 1.0 (0.8-1.3) mg/dL Est Cr Clr Drug Dosing 101.14 mL/min Estimated GFR (MDRD) > 60.0 ml/min Glucose 109 H (74-106) mg/dL Serum Osmolality (275-295) mosm/kg Calcium 8.4 L (8.5-10.1) mg/dL Total Bilirubin 0.8 (0.2-1.0) mg/dL AST 48 H (15-37) IU/L ALT 66 H (14-63) IU/L Alkaline Phosphatase 92 (46-116) U/L Total Protein 7.9 (6.4-8.2) g/dL Albumin 3.6 (3.4-5.0) g/dL Globulin 4.3 H (2.6-4.0) g/dL Albumin/Globulin Ratio 0.8 L (0.9-1.6) Urine Osmolality (300-900) mosm/kg Chuy Results Last 24 Hours: Microbiology 06/08/21 07:53 Aerobic Blood Culture - Preliminary Blood - Venous - Lab Draw NO GROWTH AFTER 1 DAY Anaerobic Blood Culture - Preliminary NO GROWTH AFTER 1 DAY 06/08/21 07:45 Aerobic Blood Culture - Preliminary Blood - Venous NO GROWTH AFTER 1 DAY Anaerobic Blood Culture - Preliminary NO GROWTH AFTER 1 DAY Med Orders - Current: Current Medications Acetaminophen (Acetaminophen 325 Mg Tab) 650 mg PO Q6H PRN PRN Reason: Fever Last Admin: 06/09/21 08:32 Dose: 650 mg Documented by: Enoxaparin Sodium (Enoxaparin 40 Mg/0.4 Ml Syringe) 40 mg SUBCUT DAILY [facility] Last Admin: 06/09/21 11:42 Dose: 40 mg Documented by: Pantoprazole Sodium (Pantoprazole 40 Mg Tab.Cr) 40 mg PO DAILY [facility] Last Admin: 06/09/21 11:41 Dose: 40 mg Documented by: Sodium Chloride (Sodium Chloride 0.9% 10 Ml Syringe) 10 ml FLUSH ASDIRECTED PRN PRN Reason: Keep Vein Open Last Admin: 06/07/21 20:13 Dose: 10 ml Documented by: Sodium Chloride (Sodium Chloride 0.9% 2.5 Ml Syringe) 2.5 ml FLUSH ASDIRECTED PRN PRN Reason: Keep Vein Open Last Admin: 06/07/21 20:13 Dose: 2.5 ml Documented by: Discontinued Medications Sodium Chloride (Normal Saline) 1,000 mls @ 999 mls/hr IV .Bolus ONE Stop: 06/07/21 21:00 Last Admin: 06/07/21 20:12 Dose: 999 mls/hr Documented by: Sodium Chloride (Normal Saline) 1,000 mls @ 999 mls/hr IV .Bolus ONE Stop: 06/07/21 23:04 Last Admin: 06/07/21 22:56 Dose: Not Given Documented by: Influenza Virus Vaccine (Pharmacy To Dose - Influenza Vaccine) 1 each IM ONETIME ONE Stop: 06/08/21 10:01 Influenza Virus Vaccine (Flu Vacc [id number](6mos Up)/Pf 60 Mcg/0.5 Ml Syringe) 60 mcg IM .ONCE ONE Stop: 06/08/21 10:01 Last Admin: 06/08/21 17:34 Dose: Not Given Documented by: Iopamidol (Iopamidol 755 Mg/Ml 500 Ml Multipack Bottle) 100 ml IVPUSH ONETIME STA Stop: 06/07/21 23:07 Last Admin: 06/07/21 23:07 Dose: 100 ml Documented by: Ketorolac Tromethamine (Ketorolac 15 Mg/Ml Sdv) 15 mg IVPUSH ONETIME ONE Stop: 06/07/21 20:01 Last Admin: 06/07/21 20:12 Dose: 15 mg Documented by: Loperamide HCl (Loperamide 2 Mg Cap) 2 mg PO ONETIME ONE Stop: 06/09/21 08:13 Last Admin: 06/09/21 08:32 Dose: 2 mg Documented by: - Exam General: Alert, Oriented, Cooperative HEENT: Other (Dry mucous membranes) Neck: Trachea Midline Lungs: Clear to Auscultation, Normal Respiratory Effort Cardiovascular: Regular Rate, Regular Rhythm GI/Abdominal Exam: Normal Bowel Sounds, Soft, Non-Tender, No Organomegaly Extremities: No Pedal Edema - Patient Data Lab Results Last 24 hrs: Laboratory Results - last 24 hr 06/08/21 06/08/21 06/09/21 Range/Units 09:25 09:25 06:35 WBC 5.02 (4.0-11.0) K/uL RBC 5.23 (4.50-5.90) M/uL Hgb 14.7 (13.0-17.0) g/dL Hct 41.9 (38.0-50.0) % MCV 80.1 (80.0-98.0) fL MCH 28.1 (27.0-32.0) pg MCHC 35.1 (31.0-37.0) g/dL RDW Std Deviation 39.2 (28.0-62.0) fl RDW Coeff of David 13 (11.0-15.0) % Plt Count 142 L (150-400) K/uL MPV 11.00 (7.40-12.00) fL Neut % (Auto) 61.3 (48.0-80.0) % Lymph % (Auto) 31.7 (16.0-40.0) % [place] % (Auto) 6.8 (0.0-15.0) % Eos % (Auto) 0.0 (0.0-7.0) % Baso % (Auto) 0.2 (0.0-1.5) % Neut # (Auto) 3.1 (1.4-5.7) K/uL Lymph # (Auto) 1.6 (0.6-2.4) K/uL [place] # (Auto) 0.3 (0.0-0.8) K/uL Eos # (Auto) 0.0 (0.0-0.7) K/uL Baso # (Auto) 0.0 (0.0-0.1) K/uL Nucleated RBC % 0.0 /100WBC Nucleated RBCs # 0 K/uL Sodium (136-148) mmol/L Potassium (3.5-5.1) mmol/L Chloride (98-107) mmol/L Carbon Dioxide (21.0-32.0) mmol/L BUN (7.0-18.0) mg/dL Creatinine (0.8-1.3) mg/dL Est Cr Clr Drug Dosing mL/min Estimated GFR (MDRD) ml/min Glucose (74-106) mg/dL Serum Osmolality 264 L (275-295) mosm/kg Calcium (8.5-10.1) mg/dL Total Bilirubin (0.2-1.0) mg/dL AST (15-37) IU/L ALT (14-63) IU/L Alkaline Phosphatase (46-116) U/L Total Protein (6.4-8.2) g/dL Albumin (3.4-5.0) g/dL Globulin (2.6-4.0) g/dL Albumin/Globulin Ratio (0.9-1.6) Urine Osmolality 436 (300-900) mosm/kg 06/09/21 Range/Units 06:35 WBC (4.0-11.0) K/uL RBC (4.50-5.90) M/uL Hgb (13.0-17.0) g/dL Hct (38.0-50.0) % MCV (80.0-98.0) fL MCH (27.0-32.0) pg MCHC (31.0-37.0) g/dL RDW Std Deviation (28.0-62.0) fl RDW Coeff of David (11.0-15.0) % Plt Count (150-400) K/uL MPV (7.40-12.00) fL Neut % (Auto) (48.0-80.0) % Lymph % (Auto) (16.0-40.0) % [place] % (Auto) (0.0-15.0) % Eos % (Auto) (0.0-7.0) % Baso % (Auto) (0.0-1.5) % Neut # (Auto) (1.4-5.7) K/uL Lymph # (Auto) (0.6-2.4) K/uL [place] # (Auto) (0.0-0.8) K/uL Eos # (Auto) (0.0-0.7) K/uL Baso # (Auto) (0.0-0.1) K/uL Nucleated RBC % /100WBC Nucleated RBCs # K/uL Sodium 132 L (136-148) mmol/L Potassium 4.9 (3.5-5.1) mmol/L Chloride 95 L (98-107) mmol/L Carbon Dioxide 28.3 (21.0-32.0) mmol/L BUN 10 (7.0-18.0) mg/dL Creatinine 1.0 (0.8-1.3) mg/dL Est Cr Clr Drug Dosing 101.14 mL/min Estimated GFR (MDRD) > 60.0 ml/min Glucose 109 H (74-106) mg/dL Serum Osmolality (275-295) mosm/kg Calcium 8.4 L (8.5-10.1) mg/dL Total Bilirubin 0.8 (0.2-1.0) mg/dL AST 48 H (15-37) IU/L ALT 66 H (14-63) IU/L Alkaline Phosphatase 92 (46-116) U/L Total Protein 7.9 (6.4-8.2) g/dL Albumin 3.6 (3.4-5.0) g/dL Globulin 4.3 H (2.6-4.0) g/dL Albumin/Globulin Ratio 0.8 L (0.9-1.6) Urine Osmolality (300-900) mosm/kg Result Diagrams: 06/09/21 06:35 06/09/21 06:35 Chuy Results Last 24 hrs: Microbiology 06/08/21 07:53 Aerobic Blood Culture - Preliminary Blood - Venous - Lab Draw NO GROWTH AFTER 1 DAY Anaerobic Blood Culture - Preliminary NO GROWTH AFTER 1 DAY 06/08/21 07:45 Aerobic Blood Culture - Preliminary Blood - Venous NO GROWTH AFTER 1 DAY Anaerobic Blood Culture - Preliminary NO GROWTH AFTER 1 DAY Sepsis Event Note - Evaluation Sepsis Screening Result: No Definite Risk - Focused Exam Vital Signs: Vital Signs Temp Temp Pulse Resp BP Pulse Ox 06/09/21 11:40 99 F 81 16 118/73 96 06/09/21 08:32 100 F 06/09/21 08:28 100 F 89 16 116/79 94 L 06/09/21 04:00 100.2 F 06/09/21 03:26 102.2 F H 96 16 115/61 95 06/09/21 02:49 102.2 F H 06/09/21 00:05 100 F 104 H 16 118/80 95 - Problem List & Annotations (1) COVID-19 virus infection SNOMED Code(s): 667947070 Code(s): U07.1 - COVID-19 Status: Acute Current Visit: Yes (2) Hyponatremia SNOMED Code(s): 29182568 Code(s): E87.1 - HYPO-OSMOLALITY AND HYPONATREMIA Status: Acute Current Visit: Yes - Problem List Review Problem List Initiated/Reviewed/Updated: Yes - My Orders Last 24 Hours: My Active Orders 06/09/21 10:30 Enoxaparin [Lovenox] 40 mg SUBCUT DAILY Pantoprazole [ProTONIX] 40 mg PO DAILY 06/10/21 05:11 CBC WITH AUTO DIFF [HEME] AM CMP [COMPREHENSIVE METABOLIC PN,CMP] [CHEM] AM - Plan Plan:: 1. Hyponatremia -The patient's decreased sodium levels can be a result of his COVID-19 infection, dehydration, or SIADH, the patient received multiple boluses of IV fluids and has been encouraged to increase his oral intake which he has been doing. Urine osmolarity and serum osmolarity were both ordered, the serum osmolarity was decreased at 264 and urine osmolarity was normal at 436. We will continue with daily CMP's and hope the patient will be well enough to be discharged tomorrow. I will check on the patient later today to see if he has improved clinically, if so he will be discharged tomorrow and if not he will be changed from observation to inpatient. 2. COVID-19 infection -The patient is saturating 95% on room air, does not have any shortness of breath, and does not have any cough. As a result we will continue to monitor his vital signs but will not treat with any medication at this time. .
[2021-06-10] MEDS: Acetaminophen 325 MG Tab PO PRN (02:43)
[2021-06-10 06:57] LABS: BLOOD UREA NITROGEN,BUN 9 mg/dL (7.0-18.0); CHLORIDE,CL 97 mmol/L (98-107); GLUCOSE RANDOM 105 mg/dL (74-106); POTASSIUM,K 4.4 mmol/L (3.5-5.1); SODIUM,NA 133 mmol/L (136-148)
[2021-06-10] MEDS: Enoxaparin 40 MG/0.4 ML Syringe SUBCUT SCH (08:18)
[2021-06-10] MEDS: Pantoprazole 40 MG Tab.CR PO SCH (08:18)
--- NOTE | 2021-06-10 10:53 | PCM.DCSUM1 ---
<Armida Mathew - Last Filed: 06/10/21 10:45> Discharge Summary - Hospital Course Free Text/Narrative:: The patient is a 35-year-old male, on day 3 of service, who has no significant past medical history, who works as an auto electrician, and was admitted to the hospital due to hyponatremia and due to COVID-19 infection. He was initially diagnosed with COVID-19 on 05/30 with symptoms beginning on 06/01 which included fever and slight shortness of breath. His fevers ranged from 101-102 for which he was using Tylenol at home, and was also receiving the same treatment while in hospital. His O2 saturation while in hospital remained over 90% on room air, and he did not require any oxygen supplementation or treatment with remdesivir or prednisone. For his hyponatremia he received 1 normal saline bolus in the emergency department, and for the rest of his hospital course was encouraged to increase his oral intake of both fluids and solids rich in sodium. Daily CMP's showed that his sodium levels started to correct themselves and today he is at a level of 133. He has been advised to continue eating and drinking, and to use Gatorade and coconut water to replenish his electrolytes. He feels much better today, is afebrile, and denies any shortness of breath or cough. During his hospital course, he was suffering from diarrhea and was given Imodium, and today he no longer suffers from loose stools. He was educated on symptoms that would require him to return to the hospital, including chest pain, shortness of breath, fever, and palpitations. The patient is now ready to be discharged home and will follow up with Dr. Mathew, his new PCP in 1 to 2 weeks time. - Discharge Data Discharge Date: 06/10/21 Discharge Disposition: Home, Self-Care 01 Condition: Good - Referral to Home Health Primary [facility] Physician: [facility] - Discharge Diagnosis/Problem(s) (1) COVID-19 virus infection SNOMED Code(s): 364448871 ICD Code: U07.1 - COVID-19 Status: Acute (2) Hyponatremia SNOMED Code(s): 72105146 ICD Code: E87.1 - HYPO-OSMOLALITY AND HYPONATREMIA Status: Acute - Patient Instructions Diet: Regular Diet as Tolerated Activity: As Tolerated Showering/Bathing: May Shower Other/Special Instructions: If you experience shortness of breath and/or respiratory difficulty return to the hospital. If you have fever use [id number] Tylenol. Due to your decreased sodium levels, it is advised to increase your oral intake of solids and foods which are higher in sodium. Follow-up with your new PCP, Dr. Mathew, in 1 to 2 weeks to have a BMP done. - Discharge Plan Home Medications: Home Meds D-Methorphan/PE/Acetaminophen [Tylenol Cold Multi-Symp Caplet] 2 tab PO Q4H PRN 06/07/21 [History] Ibuprofen 600 mg PO Q8H PRN 06/07/21 [History] Patient Handouts: Diarrhea, Adult, COVID-19, COVID-19: How to Protect Yourself and Others - [facility] Forms: ED Department Discharge Referrals: Armida Mathew MD [Resident] - 06/18/21 2:00 pm - Discharge Summary/Plan Comment DC Time >30 min.: Yes Total # of Minutes for Discharge Time: 35 minutes - Review of Systems General: Denies: Fever, Fatigue, Chills HEENT: Denies: Headaches, Sore Throat Pulmonary: Denies: Shortness of Breath, Pleuritic Chest Pain, Cough Cardiovascular: Denies: Chest Pain, Palpitations, Dyspnea on Exertion Gastrointestinal: Denies: Abdominal Pain, Constipation, Diarrhea Genitourinary: Denies: Dysuria - Patient Data Vitals - Most Recent: Last Vital Signs Temp 98.6 F 06/10/21 08:16 Pulse 97 06/10/21 08:16 Resp 17 06/10/21 08:16 BP 110/71 06/10/21 08:16 Pulse Ox 94 L 06/10/21 08:16 Weight - Most Recent: 104.961 kg I&O - Last 24 hours: Intake & Output 06/09/21 06/10/21 06/10/21 22:59 06:59 14:59 Intake Total 1620 1400 Output Total 800 Balance 820 1400 Lab Results - Last 24 hrs: Laboratory Results - last 24 hr 06/10/21 06/10/21 Range/Units 05:24 05:24 WBC 5.59 (4.0-11.0) K/uL RBC 4.84 (4.50-5.90) M/uL Hgb 13.6 (13.0-17.0) g/dL Hct 38.6 (38.0-50.0) % MCV 79.8 L (80.0-98.0) fL MCH 28.1 (27.0-32.0) pg MCHC 35.2 (31.0-37.0) g/dL RDW Std Deviation 38.3 (28.0-62.0) fl RDW Coeff of David 13 (11.0-15.0) % Plt Count 161 (150-400) K/uL MPV 10.30 (7.40-12.00) fL Neut % (Auto) 69.1 (48.0-80.0) % Lymph % (Auto) 25.0 (16.0-40.0) % Luna % (Auto) 5.7 (0.0-15.0) % Eos % (Auto) 0.0 (0.0-7.0) % Baso % (Auto) 0.2 (0.0-1.5) % Neut # (Auto) 3.9 (1.4-5.7) K/uL Lymph # (Auto) 1.4 (0.6-2.4) K/uL Luna # (Auto) 0.3 (0.0-0.8) K/uL Eos # (Auto) 0.0 (0.0-0.7) K/uL Baso # (Auto) 0.0 (0.0-0.1) K/uL Nucleated RBC % 0.0 /100WBC Nucleated RBCs # 0 K/uL Sodium 133 L (136-148) mmol/L Potassium 4.4 (3.5-5.1) mmol/L Chloride 97 L (98-107) mmol/L Carbon Dioxide 30.0 (21.0-32.0) mmol/L BUN 9 (7.0-18.0) mg/dL Creatinine 1.0 (0.8-1.3) mg/dL Est Cr Clr Drug Dosing 101.14 mL/min Estimated GFR (MDRD) > 60.0 ml/min Glucose 105 (74-106) mg/dL Calcium 7.7 L (8.5-10.1) mg/dL Total Bilirubin 0.7 (0.2-1.0) mg/dL AST 55 H (15-37) IU/L ALT 64 H (14-63) IU/L Alkaline Phosphatase 92 (46-116) U/L Total Protein 6.9 (6.4-8.2) g/dL Albumin 3.3 L (3.4-5.0) g/dL Globulin 3.6 (2.6-4.0) g/dL Albumin/Globulin Ratio 0.9 (0.9-1.6) DAVID Results - Last 24 hrs: Microbiology 06/08/21 07:53 Aerobic Blood Culture - Preliminary Blood - Venous - Lab Draw NO GROWTH AFTER 2 DAYS Anaerobic Blood Culture - Preliminary NO GROWTH AFTER 2 DAYS 06/08/21 07:45 Aerobic Blood Culture - Preliminary Blood - Venous NO GROWTH AFTER 2 DAYS Anaerobic Blood Culture - Preliminary NO GROWTH AFTER 2 DAYS Med Orders - Current: Current Medications Acetaminophen (Acetaminophen 325 Mg Tab) 650 mg PO Q6H PRN PRN Reason: Fever Last Admin: 06/10/21 02:43 Dose: 650 mg Documented by: Enoxaparin Sodium (Enoxaparin 40 Mg/0.4 Ml Syringe) 40 mg SUBCUT DAILY [facility] Last Admin: 06/10/21 08:18 Dose: 40 mg Documented by: Pantoprazole Sodium (Pantoprazole 40 Mg Tab.Cr) 40 mg PO DAILY [facility] Last Admin: 06/10/21 08:18 Dose: 40 mg Documented by: Sodium Chloride (Sodium Chloride 0.9% 10 Ml Syringe) 10 ml FLUSH ASDIRECTED PRN PRN Reason: Keep Vein Open Last Admin: 06/07/21 20:13 Dose: 10 ml Documented by: Sodium Chloride (Sodium Chloride 0.9% 2.5 Ml Syringe) 2.5 ml FLUSH ASDIRECTED PRN PRN Reason: Keep Vein Open Last Admin: 06/07/21 20:13 Dose: 2.5 ml Documented by: Discontinued Medications Sodium Chloride (Normal Saline) 1,000 mls @ 999 mls/hr IV .Bolus ONE Stop: 06/07/21 21:00 Last Admin: 06/07/21 20:12 Dose: 999 mls/hr Documented by: Sodium Chloride (Normal Saline) 1,000 mls @ 999 mls/hr IV .Bolus ONE Stop: 06/07/21 23:04 Last Admin: 06/07/21 22:56 Dose: Not Given Documented by: Influenza Virus Vaccine (Pharmacy To Dose - Influenza Vaccine) 1 each IM ONETIME ONE Stop: 06/08/21 10:01 Influenza Virus Vaccine (Flu Vacc [id number](6mos Up)/Pf 60 Mcg/0.5 Ml Syringe) 60 mcg IM .ONCE ONE Stop: 06/08/21 10:01 Last Admin: 06/08/21 17:34 Dose: Not Given Documented by: Iopamidol (Iopamidol 755 Mg/Ml 500 Ml Multipack Bottle) 100 ml IVPUSH ONETIME STA Stop: 06/07/21 23:07 Last Admin: 06/07/21 23:07 Dose: 100 ml Documented by: Ketorolac Tromethamine (Ketorolac 15 Mg/Ml Sdv) 15 mg IVPUSH ONETIME ONE Stop: 06/07/21 20:01 Last Admin: 06/07/21 20:12 Dose: 15 mg Documented by: Loperamide HCl (Loperamide 2 Mg Cap) 2 mg PO ONETIME ONE Stop: 06/09/21 08:13 Last Admin: 06/09/21 08:32 Dose: 2 mg Documented by: - Exam General: Reports: Alert, Oriented, Cooperative HEENT: Reports: Mucous Membr. Moist/[place] Neck: Reports: Trachea Midline Lungs: Reports: Clear to Auscultation, Normal Respiratory Effort Cardiovascular: Reports: Regular Rate, Regular Rhythm GI/Abdominal Exam: Normal Bowel Sounds, Soft, Non-Tender, No Organomegaly <Barak Andrew - Last Filed: 06/10/21 21:48> Discharge Summary - Referral to Home Health Primary [facility] Physician: [facility] - Patient Data Vitals - Most Recent: Last Vital Signs Temp 37.0 C 06/10/21 08:16 Pulse 97 06/10/21 08:16 Resp 17 06/10/21 08:16 BP 110/71 06/10/21 08:16 Pulse Ox 94 L 06/10/21 08:16 I&O - Last 24 hours: Intake & Output 06/10/21 06/10/21 06/10/21 06:59 14:59 22:59 Intake Total 1400 Balance 1400 Lab Results - Last 24 hrs: Laboratory Results - last 24 hr 06/10/21 06/10/21 Range/Units 05:24 05:24 WBC 5.59 (4.0-11.0) K/uL RBC 4.84 (4.50-5.90) M/uL Hgb 13.6 (13.0-17.0) g/dL Hct 38.6 (38.0-50.0) % MCV 79.8 L (80.0-98.0) fL MCH 28.1 (27.0-32.0) pg MCHC 35.2 (31.0-37.0) g/dL RDW Std Deviation 38.3 (28.0-62.0) fl RDW Coeff of David 13 (11.0-15.0) % Plt Count 161 (150-400) K/uL MPV 10.30 (7.40-12.00) fL Neut % (Auto) 69.1 (48.0-80.0) % Lymph % (Auto) 25.0 (16.0-40.0) % Luna % (Auto) 5.7 (0.0-15.0) % Eos % (Auto) 0.0 (0.0-7.0) % Baso % (Auto) 0.2 (0.0-1.5) % Neut # (Auto) 3.9 (1.4-5.7) K/uL Lymph # (Auto) 1.4 (0.6-2.4) K/uL Luna # (Auto) 0.3 (0.0-0.8) K/uL Eos # (Auto) 0.0 (0.0-0.7) K/uL Baso # (Auto) 0.0 (0.0-0.1) K/uL Nucleated RBC % 0.0 /100WBC Nucleated RBCs # 0 K/uL Sodium 133 L (136-148) mmol/L Potassium 4.4 (3.5-5.1) mmol/L Chloride 97 L (98-107) mmol/L Carbon Dioxide 30.0 (21.0-32.0) mmol/L BUN 9 (7.0-18.0) mg/dL Creatinine 1.0 (0.8-1.3) mg/dL Est Cr Clr Drug Dosing 101.14 mL/min Estimated GFR (MDRD) > 60.0 ml/min Glucose 105 (74-106) mg/dL Calcium 7.7 L (8.5-10.1) mg/dL Total Bilirubin 0.7 (0.2-1.0) mg/dL AST 55 H (15-37) IU/L ALT 64 H (14-63) IU/L Alkaline Phosphatase 92 (46-116) U/L Total Protein 6.9 (6.4-8.2) g/dL Albumin 3.3 L (3.4-5.0) g/dL Globulin 3.6 (2.6-4.0) g/dL Albumin/Globulin Ratio 0.9 (0.9-1.6) DAVID Results - Last 24 hrs: Microbiology 06/08/21 07:53 Aerobic Blood Culture - Preliminary Blood - Venous - Lab Draw NO GROWTH AFTER 2 DAYS Anaerobic Blood Culture - Preliminary NO GROWTH AFTER 2 DAYS 06/08/21 07:45 Aerobic Blood Culture - Preliminary Blood - Venous NO GROWTH AFTER 2 DAYS Anaerobic Blood Culture - Preliminary NO GROWTH AFTER 2 DAYS Med Orders - Current: Current Medications Discontinued Medications Acetaminophen (Acetaminophen 325 Mg Tab) 650 mg PO Q6H PRN PRN Reason: Fever Last Admin: 06/10/21 02:43 Dose: 650 mg Documented by: Enoxaparin Sodium (Enoxaparin 40 Mg/0.4 Ml Syringe) 40 mg SUBCUT DAILY PIEDAD Last Admin: 06/10/21 08:18 Dose: 40 mg Documented by: Sodium Chloride (Normal Saline) 1,000 mls @ 999 mls/hr IV .Bolus ONE Stop: 06/07/21 21:00 Last Admin: 06/07/21 20:12 Dose: 999 mls/hr Documented by: Sodium Chloride (Normal Saline) 1,000 mls @ 999 mls/hr IV .Bolus ONE Stop: 06/07/21 23:04 Last Admin: 06/07/21 22:56 Dose: Not Given Documented by: Influenza Virus Vaccine (Pharmacy To Dose - Influenza Vaccine) 1 each IM ONETIME ONE Stop: 06/08/21 10:01 Influenza Virus Vaccine (Flu Vacc [id number](6mos Up)/Pf 60 Mcg/0.5 Ml Syringe) 60 mcg IM .ONCE ONE Stop: 06/08/21 10:01 Last Admin: 06/08/21 17:34 Dose: Not Given Documented by: Iopamidol (Iopamidol 755 Mg/Ml 500 Ml Multipack Bottle) 100 ml IVPUSH ONETIME STA Stop: 06/07/21 23:07 Last Admin: 06/07/21 23:07 Dose: 100 ml Documented by: Ketorolac Tromethamine (Ketorolac 15 Mg/Ml Sdv) 15 mg IVPUSH ONETIME ONE Stop: 06/07/21 20:01 Last Admin: 06/07/21 20:12 Dose: 15 mg Documented by: Loperamide HCl (Loperamide 2 Mg Cap) 2 mg PO ONETIME ONE Stop: 06/09/21 08:13 Last Admin: 06/09/21 08:32 Dose: 2 mg Documented by: Pantoprazole Sodium (Pantoprazole 40 Mg Tab.Cr) 40 mg PO DAILY PIEDAD Last Admin: 06/10/21 08:18 Dose: 40 mg Documented by: Sodium Chloride (Sodium Chloride 0.9% 10 Ml Syringe) 10 ml FLUSH ASDIRECTED PRN PRN Reason: Keep Vein Open Last Admin: 06/07/21 20:13 Dose: 10 ml Documented by: Sodium Chloride (Sodium Chloride 0.9% 2.5 Ml Syringe) 2.5 ml FLUSH ASDIRECTED PRN PRN Reason: Keep Vein Open Last Admin: 06/07/21 20:13 Dose: 2.5 ml Documented by: - Free Text/Narrative Note: I have seen and examined the patient. I have discussed findings and treatment plan with the resident. I agree with the assessment and plan outlined in the following note.
== END 2021-06-10 11:45 | disposition home or self-care (01) ==
LOC: MW.ED 19:25 → MW.MS 23:01
PROVIDERS: ADMIT Internal Medicine; ATTEND Internal Medicine
DX: U07.1 COVID-19 (principal); R06.02 Shortness of breath; E86.0 Dehydration; E87.1 Hypo-osmolality and hyponatremia; Z79.899 Other long term (current) drug therapy
CPT/HCPCS: 36415; 71275; 71275-26; 80048; 80053; 81003; 83930; 83935; 84484; 85025; 85379; 87040; 93005; 96372; 96374; 99285-25; A9270-GY; G0378; J1650; J1885; J7030; Q9967

== ENCOUNTER 2021-12-19 09:16 | Emergency (ER) | payer BC, OTHER, SELFPAY ==
[2021-12-19] MEDS ORDERED: Acetaminophen 500 MG Tab PO ONE (09:42)
[2021-12-19] MEDS ORDERED: Ibuprofen 800 MG Tab PO ONE (09:43)
[2021-12-19 10:38] LABS: BLOOD UREA NITROGEN,BUN 12 mg/dL (7.0-18.0); CHLORIDE,CL 99 mmol/L (98-107); GLUCOSE RANDOM 113 mg/dL (74-106); POTASSIUM,K 4.3 mmol/L (3.5-5.1); SODIUM,NA 135 mmol/L (136-148)
[2021-12-19] MEDS ORDERED: Albuterol 0.083% 2.5 MG/3 ML Neb Soln NEB STA (11:32)
== END 2021-12-19 13:16 | disposition home or self-care (01) ==
LOC: MW.ED 09:16
DX: J40 Bronchitis, not specified as acute or chronic (principal)
CPT/HCPCS: 36415; 71045; 80053; 85025; 85379; 99285; A9270; 99283

== ENCOUNTER 2023-09-30 14:54 | Emergency (ER) | payer BC, OTHER ==
[2023-09-30 15:39] LABS: BASOPHILS ABSOLUTE AUTO 0.05 K/uL (0.00-0.20); BASOPHILS PERCENT AUTO 0.7 % (0.0-1.0); EOSINOPHILS ABSOLUTE AUTO 0.11 K/uL (0.00-0.45); EOSINOPHILS PERCENT AUTO 1.6 % (0.0-6.0); HEMATOCRIT 45.4 % (42.0-52.0); HEMOGLOBIN 15.7 g/dL (14.0-18.0); IMMATURE GRAN ABSOLUTE AUTO 0.04 K/uL (0.00-0.05); IMMATURE GRAN PERCENT AUTO 0.6 % (0.0-0.4); LYMPHOCYTES ABSOLUTE AUTO 2.32 K/uL (1.00-4.80); LYMPHOCYTES PERCENT AUTO 33.3 % (24.0-44.0); MEAN CORPUSCULAR HEMOGLOBIN 28.3 pg (28.0-32.0); MEAN CORPUSCULAR HGB CONC 34.6 g/dL (32.0-36.0); MEAN CORPUSCULAR VOLUME 81.8 fL (83.0-99.0); MONOCYTES PERCENT AUTO 7.2 % (0.0-8.0); NEUTROPHILS ABSOLUTE AUTO 3.95 K/uL (1.80-7.70); NEUTROPHILS PERCENT AUTO 56.6 % (41.0-71.0); PLATELET COUNT,PLT 204 K/uL (150-400); RED BLOOD CELL COUNT 5.55 M/uL (4.52-5.90); WHITE BLOOD CELL COUNT,WBC 6.97 K/uL (3.9-11.3)
[2023-09-30 15:59] LABS: CORONAVIRUS COVID-19 NAA NEGATIVE (NEGATIVE); INFLUENZA A NAA NEGATIVE (NEGATIVE); INFLUENZA B NAA NEGATIVE (NEGATIVE); RESPIRATORY SYNCYTIAL VIR NAA NEGATIVE (NEGATIVE)
[2023-09-30 16:09] LABS: A/G RATIO 1.2 (0.9-1.6); ALBUMIN 4.1 g/dL (3.4-5.0); BILIRUBIN TOTAL 0.6 mg/dL (0.2-1.0); CALCIUM 8.7 mg/dL (8.5-10.1); CARBON DIOXIDE,CO2 30.5 mmol/L (21.0-32.0); CREATININE 1.1 mg/dL (0.8-1.3); EST CRCL DRUG DOSING (CG) 98.96 mL/min; POTASSIUM,K 4.5 mmol/L (3.5-5.1); PROTEIN TOTAL,TP 7.6 g/dL (6.4-8.2); TSH ULTRASENSITIVE 0.74 uIU/mL (0.36-3.74)
== END 2023-09-30 16:55 | disposition home or self-care (01) ==
LOC: MW.ED 14:54
DX: R07.9 Chest pain, unspecified (principal); R00.2 Palpitations; K04.7 Periapical abscess without sinus; Z20.822 Contact with and (suspected) exposure to COVID-19; Z86.16 Personal history of COVID-19
CPT/HCPCS: 0241U; 36415; 71045; 80053; 84443; 84484; 85025; 93005; 99285; 93010; 99283